=== PATIENT | male | born 2000 | race Caucasian/White ===

== ENCOUNTER 2023-03-24 15:45 | Emergency (ER) | payer SELFPAY ==
[~2023-03-24] VITALS: Ht 177.8 cm; Wt 106.6 kg
[2023-03-24] MEDS ORDERED: fentaNYL INJECTION 100 MCG/2 ML VIAL IVP STA (16:06)
[2023-03-24] MEDS ORDERED: KETOROLAC INJ 30 MG/ML VIAL IVP STA (16:06)
--- NOTE | 2023-03-24 16:11 | ED Upper Extremity ---
General Chief Complaint: Upper Extremity Stated Complaint: RT ARM POSSIBLY FRACTURED AND DISLOCATED Source: patient Exam Limitations: no limitations (BETINA JIANG MD) History of Present Illness Date Seen by Provider: Mar 24, 2023 Time Seen by Provider: 15:57 Initial Comments Here with report of falling down approximately 20 stairs yesterday that were wooden steps. Complains of right shoulder pain. Unsure of loss of consciousness but denies headache or other significant injury. Does have some soreness of the left arm but full range of motion as well as some soreness of the hips but also full range of motion. He was able to walking without difficulty. He was seen by [facility] and they did an x-ray of his right shoulder and said he may have a fracture or dislocation and gave him a sling and said he should follow-up in the emergency department. This is per the patient. He arrives with sling in place and pain to the total right shoulder area with difficulty with range of motion. No lesions or bruising noted or reported. States that his brought him here. Onset: yesterday Severity: moderate Pain/Injury Location: right shoulder Method of Injury: fell Modifying Factors: Improves With Immobilization; Worse With Movement (BETINA JIANG MD) Allergies and Home Medications Allergies Uncoded Allergies: PENICILLIN (Allergy, Mild, 01/09/11) Patient Home Medication List Home Medication List Reviewed: Yes (BETINA JIANG MD) Review of Systems Constitutional: No fever Respiratory: No cough, No short of breath Cardiovascular: No chest pain Gastrointestinal: No abdominal pain, No nausea, No vomiting Musculoskeletal: joint pain, muscle pain; No neck pain Skin: No change in color, No lesions Psychiatric/Neurological: Denies Headache (BETINA JIANG MD) Past Nnhehzm-Dimqfq-Imeguo Hx Patient Social History Tobacco Use?: No (BETINA JIANG MD) Seasonal Allergies Seasonal Allergies: Yes (BETINA JIANG MD) Past Medical History Surgeries: Yes (Teeth) Respiratory: No Cardiac: No Neurological: No (BETINA JIANG MD) Family Medical History Reviewed Nursing Family Hx (BETINA JIANG MD) No Pertinent Family Hx, Seizures (BETINA JIANG MD) Physical Exam Vital Signs Vital Signs - First Documented 9/1/23 9/1/23 15:54 17:33 Temp 37.0 Pulse 89 Resp 20 B/P (MAP) 148/88 (108) Pulse Ox 98 O2 Delivery Nasal Cannula O2 Flow Rate 2.00 (ANUM PRECIADO) Vital Signs Capillary Refill : (BETINA JIANG MD) Height, Weight, BMI Height: '" Weight: lbs. oz. kg; BMI Method:Stated General Appearance: WD/WN, mild distress HEENT: PERRL/EOMI Neck: non-tender, full range of motion, supple, normal inspection Cardiovascular: regular rate, rhythm, no murmur Respiratory: lungs clear, normal breath sounds Gastrointestinal: non tender, soft Back: normal inspection, no CVA tenderness, no vertebral tenderness Shoulder: limited ROM (All findings are on the right), pain, soft tissue tenderness Elbow/Forearm: normal inspection, no evidence of injury, normal ROM Neurologic/Psychiatric: alert, normal mood/affect Skin: normal color, warm/dry; No ecchymosis (BETINA JIANG MD) Procedures/Interventions Patient Education: Explained Benefits Agreement on procedure with pt: Yes Breath Sounds per Auscultation: Clear Heart Sounds per Auscultation: Regular Airway Exam: Mouth opens >2 fingers, Neck Full Range of Motion, Visulation of Uvula Sedation Adminstration Time: 17:33 Total Time spent in CS 20 Sedation with propofol that was given in as needed aliquots of 25 to 100 mg to a total of 350 mg to achieve appropriate sedation for reduction. Patient was monitored on end-tidal CO2 and SPO2 and maintained appropriate oxygen saturations with appropriate CO2 levels throughout sedation and had appropriate blood pressure and heart rate. Tolerated sedation well without complication. Fully awake at this time and talking and feels much better. Re-examination Time: 18:10 Re-examination Sedation complete and patient awake without adverse effect. (BETINA JIANG MD) Splinting and Joint Reduction : Pre-Proc Neuro Vasc Exam: normal Post-Proc Neuro Vasc Exam: normal Joint Reduction Site: shoulder (R) Reduction Attempts: 2 Pre-Procedure NV Exam: Yes post joint reduction film: joint reduced Progress Difficult shoulder reduction secondary to length of dislocation. Successful reduction with 2 attempts of manipulation with a audible pop and verification with x-ray. Immobilizers: Large Shoulder (ANUM PRECIADO) Progress/Results/Core Measures Results/Orders Vital Signs/I&O 03/24/23 03/24/23 15:54 17:33 Temp 37.0 Pulse 89 Resp 20 B/P (MAP) 148/88 (108) Pulse Ox 98 O2 Delivery Nasal Cannula O2 Flow Rate 2.00 (ANUM PRECIADO) Progress Progress Note : Progress Note Seen and evaluated. IV established and fentanyl 50 mcg IV and Toradol 30 mg IV for pain. X-ray right shoulder ordered. We will hold on further x-ray evaluation of other parts of the body at this point as he is moving well. Discussed CT of the head and neck but we will hold on that as patient is not having any sequela currently and has full range of motion of the neck. He is okay with that. Monitor patient. Differential diagnosis includes right shoulder dislocation versus fracture versus strain/contusion 1700: X-ray reveals obvious proximal humerus tuberosity fracture and anterior dislocation on my interpretation and confirmed by radiology report. I did discuss the case with Dr. Aj, orthopedics on-call. He has reviewed the films. He is okay with me trying to reduce the dislocation and we will have to use moderate sedation. I did discuss this with the patient who is in agreement. We will set up for moderate sedation using propofol and try to reduce the dislo cation and fracture. 1758: I did discuss the case with Dr. Aj. We were able to reduce the shoulder. Shoulder reduction was by KATYA Silver while I did the sedation with propofol. He tolerated this well and sling and swath was applied and post reduction x-ray was done. I did review that x-ray and it does show adequate alignment although fracture fragment is still displaced on my interpretation. All of this was discussed with Dr. AJ who agreed to see patient outpatient and agrees with griselda and wants patient to keep arm down in front of him until he is seen. 1832: Patient is feeling much better. is here to pick him up. I did review discharge instructions with him as well as return precautions. We will send a short prescription for pain medicine. Discharged home with return precautions. Patient verbalized understanding instructions and agreement with plan. (BETINA JIANG MD) Diagnostic Imaging Diagonstic Imaging: Xray Plain Films/CT/US/NM/MRI: other Comments [email or web address] [employer], [place] NAME: EMILEE LIRIANO [facility] REC#: [id number] PT STATUS: REG ER : 2000 PHYSICIAN: BETINA JIANG MD ADMIT DATE: 03/24/23/ER Signed Date of Exam:03/24/23 SHOULDER, RIGHT, 3 VIEWS INDICATION: Right shoulder pain. TECHNIQUE: AP, oblique, and transscapular views of the right shoulder are obtained at 04:40 p.m. FINDINGS: There is anterior dislocation of the right glenohumeral joint, with avulsed fragment off the lateral aspect of the humeral head. IMPRESSION: Avulsion fracture of the humeral head with anterior dislocation of the glenohumeral joint. AC joint appears intact. Dictated by: Dictated on workstation # [id number] Dict: 03/24/23 164 Trans: 03/24/23 165 [facility] [id number] Interpreted by: JAMES COREAS MD Electronically signed by: JAMES COREAS MD 03/24/23 165 Diagonstic Imaging: Xray Plain Films/CT/US/NM/MRI: other Comments [email or web address] [place] NAME: EMILEE LIRIANO [facility] REC#: [id number] PT STATUS: REG ER : 2000 PHYSICIAN: BETINA JIANG MD ADMIT DATE: 03/24/23/ER Draft Date of Exam:03/24/23 SHOULDER, RIGHT, 2 VIEWS INDICATION: Shoulder dislocation. Status post reduction. COMPARISON: Earlier the same day. FINDINGS: Two radiographic views of the right shoulder were obtained and now show appropriate alignment of the glenohumeral joint space. Large mildly displaced humeral head fracture fragment is again noted. Included portions of the right hemithorax are clear. IMPRESSION: 1. Successful interval reduction of right shoulder dislocation. 2. Redemonstration of humeral head fracture. Dictated on workstation # [id number] Dict: 03/24/231813 Trans: 03/24/231816 [facility] [id number] Interpreted by: KAYKAY WHITE MD Electronically signed by: (BETINA JIANG MD) Departure Impression Primary Impression: Proximal humerus fracture Qualified Codes: S42.291A - Other displaced fracture of upper end of right humerus, initial encounter for closed fracture Additional Impression: Dislocation of shoulder, right, closed Qualified Codes: S43.004A - Unspecified dislocation of right shoulder joint, initial encounter Disposition: 01 HOME, SELF-CARE Condition: Stable Departure-Patient Inst. Decision time for Depature: 18:34 (BETINA JIANG MD) Referrals: Yovani REN DO (PCP) Primary Care Physician NABIL,LOCAL PHYSICIAN (Family) Primary Care Physician MARGARET AJ MD Patient Instructions: Moderate Sedation in Adults (DC), Upper Arm Fracture ED, Shoulder Dislocation (DC) Add. Discharge Instructions: All discharge instructions reviewed with patient and/or family. Voiced understanding. Call Dr. Aj's office on Monday morning for appointment for follow-up for shoulder dislocation and fracture. Use arm sling at all times except when showering. Keep arm in front of you and do not rotate the arm out or this will likely dislocate again. Take pain medicine as directed. You may take ibuprofen 600 mg every 8 hours as needed for pain. You may also take Tylenol/acetaminophen 1000 mg every 8 hours as needed for pain. Do not take Tylenol/acetaminophen with the prescribed pain medicine as they both have acetaminophen in them. Return for worse pain, weakness, numbness, swelling or other concerns as needed. You may use ice packs to area of concern 20 minutes/h as needed over the next 1 to 2 days to reduce swelling and pain. Scripts Hydrocodone/Acetaminophen (Hydrocodone-Acetamin 5-325 mg) 5 Mg-325 Mg Tablet 1 TAB PO Q6H PRN for PAIN-MODERATE (5-7) for 7 Days, #14 TAB 0 Refills Prov: BETINA JIANG MD 03/24/23 Copy Copies To 1: MARGARET AJ MD, TIMOTHY D MD Mar 24, 2023 16:11 ANUM PRECIADO Mar 24, 2023 18:18
--- NOTE | 2023-03-24 16:47 | Diagnostic Imaging Report ---
INDICATION: Right shoulder pain. TECHNIQUE: AP, oblique, and transscapular views of the right shoulder are obtained at 04:40 p.m. FINDINGS: There is anterior dislocation of the right glenohumeral joint, with avulsed fragment off the lateral aspect of the humeral head. IMPRESSION: Avulsion fracture of the humeral head with anterior dislocation of the glenohumeral joint. AC joint appears intact. Dictated by: Dictated on workstation # [id number]
[2023-03-24] MEDS ORDERED: NS 1000 ML IV BAG IV STA (17:09)
[2023-03-24] MEDS ORDERED: PROPOFOL 500 MG/50 ML IV PRN (17:15)
[2023-03-24] MEDS ORDERED: proPOfol INJECTION 200 MG/20 ML VIAL IV ONE ×2 (17:17→17:39)
[2023-03-24] MEDS ORDERED: NS IV 1000 ML 1,000 ML ONE (17:22)
--- NOTE | 2023-03-24 18:17 | Diagnostic Imaging Report ---
INDICATION: Shoulder dislocation. Status post reduction. COMPARISON: Earlier the same day. FINDINGS: Two radiographic views of the right shoulder were obtained and now show appropriate alignment of the glenohumeral joint space. Large mildly displaced humeral head fracture fragment is again noted. Included portions of the right hemithorax are clear. IMPRESSION: 1. Successful interval reduction of right shoulder dislocation. 2. Redemonstration of humeral head fracture. Dictated by: Dictated on workstation # [id number]
[2023-03-24] MEDS ORDERED: ACHD5005 PO (18:36)
[2023-03-24 19:08] VITALS: BP 155/93
== END 2023-03-24 18:52 | disposition home or self-care (01) ==
LOC: EDUNIT# 15:45 → ER 15:51
DX: S42.291A Other displaced fracture of upper end of right humerus, initial encounter for closed fracture (principal); W10.9XXA Fall (on) (from) unspecified stairs and steps, initial encounter
CPT/HCPCS: 23655; 73030; 93041